=== PATIENT | male | born 1935 | race Caucasian/White ===

== ENCOUNTER → 2017-06-11 | Outpatient (CLI) | payer MEDICARE ==
[~2017-06-11] MED LIST: AMLODIPINE10 MG PO; BENAZEPRIL HYDR40 MG PO; CARVEDILOL25 MG PO; COUMADIN2.5 MG PO; DIABETA PO; DOXAZOSIN 4MG TA4 MG PO; ECOTRIN81 MG PO; FLUID PILL PO; FUROCOT40 MG PO; KEFLEX 500MG.500 MG PO; METFORMIN1000 MG PO; METOPROLOL100 MG PO; MUCINEX1200 MG PO; OMNICEF 300 MG300 MG PO; POTASSIUM CHLO10 ME3 PO; PREDNISONE 10MG10 MG PO; PREDNISONE 20MG20 MG PO; PROTEGRA ANTIOX1 SGL PO; PROVENTIL0.09 MG/Ac IH; SIMVASTATIN20 MG PO; VENTOLIN H0.09 MG/AC IH
--- NOTE | 2017-06-12 09:20 | RADIOLOGY REPORT PS360 ---
MRI-L-SPINE W/O, Low back pain with right-sided hip pain, lumbar spondylosis congenital fusion MRI-3D RENDERING/MYELOGRAM HISTORY: DDD, LUMBAR SPONDYLOSIS, CONGENTIAL FUSION ORDERING PHYSICIAN: Major Ruiz MD PATIENT AGE: 81 years COMPARISON: Lumbar spine study of 05/23/2017 TECHNIQUE: Standard multiplanar multiecho sequences are performed without contrast. 3-D MIP and myelographic images are also rendered and reviewed FINDINGS: There is normal alignment. The spinal cord ends at the T12-L1 level. L1-L2: Anterior osteophytes. L2-L3: Mild degenerative disc disease with bulging disc along with prominent facet and ligamentum flavum hypertrophy with severe bilateral lateral recess narrowing and moderate to severe bilateral foraminal narrowing. There is transverse canal stenosis at this level with canal measuring 8 mm. Anterior osteophytes are present. L3-L4: Degenerative disc disease with bulging disc with mild facet and ligamentum flavum hypertrophy with mild bilateral lateral recess foraminal narrowing. L5-S1: Degenerative effusion. A small posterior ridge/osteophyte is present and there is facet and ligamentum flavum hypertrophy with moderate to severe bilateral foraminal narrowing. L5-S1: Degenerative disc disease with bulging disc and small broad-based central disc protrusion/herniation abutting the medial aspect of both S1 nerve roots slightly eccentric to the right. There is bilateral foraminal narrowing at this level from the bulging disc and facet hypertrophic change. There multiple left renal cysts noted. IMPRESSION: 1. Abnormal MRI of the lumbar spine with multilevel lumbar spondylosis with with degenerative disc disease and bulging disc along with facet and ligamentum flavum hypertrophy/arthritic change with lateral recess and foraminal narrowing as detailed above. Please see above for detailed description at each level 2. 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 Congenital fusion of L5-S1. 4. Degenerative disc disease with broad-based central disc protrusion/herniation versus slightly eccentric to the right at L5-S1
== END ==
LOC: RAD 15:06
DX: M51.36 Other intervertebral disc degeneration, lumbar region (principal); M47.816 Spondylosis without myelopathy or radiculopathy, lumbar region; Q76.49 Other congenital malformations of spine, not associated with scoliosis